=== PATIENT | male | born 1995 | race African-American/Black ===

== ENCOUNTER 2016-04-28 16:40 | Emergency (ER) | payer BC ==
[2016-04-28 17:20] VITALS: BP 143/77; PULSE 67; RESP 16
[2016-04-28] MEDS ORDERED: KETOROLAC 60 MG/2 ML VIAL IM STA (18:21)
--- NOTE | 2016-04-28 18:25 | ED ---
General Adult HPI - General Chief complaint: Chest Pain Stated complaint: Side Pain Time Seen by Provider: 04/28/16 18:15 Source: patient, RN notes reviewed Mode of arrival: ambulatory Limitations: no limitations - History of Present Illness Initial comments: this is a 20-year-old male who presents with muscle pain to the right side ribs. Patient states he was bench pressing and noticed pain to the right side ribs. Patient states this has been going on for about a week and a half. Patient states it hurts worse if he twists to the left, or bends down to pick something up with his right arm. Patient states he has worked out once since this pain first started and the pain worsened. Patient has been taking Motrin for the pain with no improvement in symptoms. Patient denies any pain in the pectoralis muscles or biceps. Patient denies any Trouble breathing. Patient denies any fall or direct trauma to the area. Patient denies any recent fever, chills, shortness breath, chest pain, abdominal pain, nausea/vomiting/diarrhea, back pain, numbness, tingling, hematuria, headache, or visual changes, or any other complaints. - Related Data Previous Rx's Medication Instructions Recorded Cyclobenzaprine [Flexeril] 5 mg PO TID 3 Days 04/28/16 Allergies Allergy/AdvReac Type Severity Reaction Status Date / Time No Known Allergies Allergy Verified 04/28/16 17:18 Review of Systems ROS Statement: Those systems with pertinent positive or pertinent negative responses have been documented in the HPI. ROS Other: All systems not noted in ROS Statement are negative. Past Medical History Past Medical History: No Reported History History of Any Multi-Drug Resistant Organisms: None Reported Past Surgical History: No Surgical Hx Reported Past Psychological History: No Psychological Hx Reported Smoking Status: Never smoker Past Alcohol Use History: None Reported Past Drug Use History: None Reported General Exam - General Exam Comments Initial Comments: General: The patient is awake and alert, in no distress, and does not appear acutely ill. Neck: The neck is supple, there is no tenderness or JVD. Cardiovascular: There is a regular rate and rhythm. No murmur, rub or gallop is appreciated. Respiratory: Lungs are clear to auscultation, respirations are non-labored, breath sounds are equal. No wheezes, stridor, rales, or rhonchi. Musculoskeletal: Patient has some mild tenderness to the right side lateral aspect of the ribs inferior to the axillary area. No ecchymosis, swelling or deformities. Full range of motion, strength 5/5 and Sensation intact. Radial pulses 2+ bilaterally. Neurological: A&O x 3. CN II-XII intact, There are no obvious motor or sensory deficits. Coordination appears grossly intact. Speech is normal. Skin: Skin is warm and dry and no rashes or lesions are noted. Psychiatric: Normal mood and affect. Limitations: no limitations Course Vital Signs 04/28/16 04/28/16 17:18 18:07 Pulse Rate 67 Respiratory 16 16 Rate Blood Pressure 143/77 O2 Sat by Pulse 99 Oximetry Medical Decision Making - Medical Decision Making This is a 20-year-old male presents with right side muscle pain after working out a week and half ago. On physical exam Patient has some mild tenderness to the right side lateral aspect of the ribs inferior to the axillary area. No ecchymosis, swelling or deformities. Full range of motion, strength 5/5 and Sensation intact. Radial pulses 2+ bilaterally. Patient was given a dose of Toradol in the EC. A chest x-ray was done and reviewed showing: Normal chest. Normal right ribs. Report reviewed by Dr. Winn. I discussed that this is most likely a muscle strain. I discussed continued use of Tylenol and/or Motrin and heating pads to the area. Patient was given a prescription for Flexeril. I discussed sedation effects. Discussed that he should refrain from lifting weights until the pain has subsided. I discussed return parameters and patient should follow-up with his primary care physician in one to 2 days or return to the [facility] for any worsening symptoms or for any further concerns. Patient was receptive to this plan and patient will be discharged home. Disposition Clinical Impression: Muscle strain Disposition: HOME SELF-CARE Condition: Good Instructions: Muscle Strain (ED) Additional Instructions: Please use ibuprofen and Tylenol [id number] for pain. Please do not use Flexeril will driving or drinking alcohol as may cause increased drowsiness. May use heating pads to the area. Please refrain from lifting weights until pain is completely subsided. Please follow-up with your primary care physician in one to 2 days or return to the [facility] for any worsening symptoms or for any further concerns. Prescriptions: Cyclobenzaprine [Flexeril] 5 mg PO TID 3 Days Time of Disposition: 18:58
--- NOTE | 2016-04-28 18:42 | XR ---
EXAMINATION TYPE: XR ribs RT w pa chest xray DATE OF EXAM: 04/28/2016 6:33 PM COMPARISON: NONE HISTORY: Rib pain TECHNIQUE: 5 views FINDINGS: Heart and mediastinum are normal. Lungs are clear. There is no sign of pleural effusion or pneumothorax. The right ribs are intact. I see no rib fracture. IMPRESSION: Normal chest. Normal right ribs.
== END 2016-04-28 19:07 | disposition home or self-care (01) ==
LOC: EC 16:40
DX: S29.011A Strain of muscle and tendon of front wall of thorax, initial encounter (principal); X58.XXXA Exposure to other specified factors, initial encounter
CPT/HCPCS: 71101; 99284; 96372; J1885

== ENCOUNTER 2016-08-04 22:26 | Emergency (ER) | payer BC ==
[2016-08-04 22:39] VITALS: RESP 18; TEMP 97.6
--- NOTE | 2016-08-04 22:47 | ED ---
General Adult HPI - General Chief complaint: Chest Pain Stated complaint: chest pain/arm numbness Time Seen by Provider: 08/04/16 22:35 Source: patient, RN notes reviewed Mode of arrival: ambulatory Limitations: no limitations - History of Present Illness Initial comments: This is a 21-year-old male presents to the emergency department with left pectoralis chest pain patient states it hurts with movement or palpation. Patient states the pain started 3 months ago. Patient states he doesn't quite a bit of weight lifting but he has not lifted and 3 weeks. 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 Patient thinks it may be related to that. He denies any numbness to denies any weakness in the arm. Patient states he has no neck pain and he has full range of motion of his neck. Patient denies any recent fever or chills per patient denies any palpitations difficulty breathing shortness of breath. Patient denies any abdominal pain patient denies nausea vomiting diarrhea - Related Data Previous Rx's Medication Instructions Recorded Ibuprofen [Motrin] 600 mg PO Q6HR PRN #20 tab 08/04/16 Allergies Allergy/AdvReac Type Severity Reaction Status Date / Time No Known Allergies Allergy Verified 08/04/16 22:56 Review of Systems ROS Statement: Those systems with pertinent positive or pertinent negative responses have been documented in the HPI. ROS Other: All systems not noted in ROS Statement are negative. Past Medical History Past Medical History: No Reported History History of Any Multi-Drug Resistant Organisms: None Reported Past Surgical History: No Surgical Hx Reported Past Psychological History: No Psychological Hx Reported Smoking Status: Never smoker Past Alcohol Use History: Occasional Past Drug Use History: Marijuana General Exam - General Exam Comments Initial Comments: GENERAL: Patient is well-developed and well-nourished. Patient is nontoxic and well- hydrated and is in mild distress. ENT: Neck is soft and supple. No significant lymphadenopathy is noted. Oropharynx is clear. Moist mucous membranes. Neck has full range of motion without eliciting any pain. EYES: The sclera were anicteric and conjunctiva were pink and moist. Extraocular movements were intact and pupils were equal round and reactive to light. Eyelids were unremarkable. PULMONARY: Unlabored respirations. Good breath sounds bilaterally. No audible rales rhonchi or wheezing was noted. CARDIOVASCULAR: There is a regular rate and rhythm without any murmurs gallops or rubs. Chest pain is reproducible on palpation it is very specific spot on the outer left pectoralis muscle ABDOMEN: Soft and nontender with normal bowel sounds. No palpable organomegaly was noted. There is no palpable pulsatile mass. SKIN: Skin is clear with no lesions or rashes and otherwise unremarkable. NEUROLOGIC: Patient is alert and oriented x3. Cranial nerves II through XII are grossly intact. Motor and sensory are also intact. Normal speech, volume and content. Symmetrical smile. MUSCULOSKELETAL: Normal extremities with adequate strength and full range of motion. No lower extremity swelling or edema. No calf tenderness. LYMPHATICS: No significant lymphadenopathy is noted PSYCHIATRIC: Normal psychiatric evaluation. Normal interpersonal interactions appears functionally intact in deals appropriately with others. No signs of depression. No signs of anxiety. Limitations: no limitations Course Vital Signs 08/04/16 22:37 Temperature 97.6 F Pulse Rate 81 Respiratory 18 Rate Blood Pressure 143/85 O2 Sat by Pulse 97 Oximetry Medical Decision Making - Medical Decision Making EKG shows normal sinus rhythm at 80 bpm SC interval 148 QRSs 102 QT interval 360 QTC is 4:15. Patient's EKG shows no ST segment elevation or depression or T wave abnormalities are noted. Chest x-ray shows no acute abnormality. Patient's pain was completely reproducible with movement or palpation. Disposition Clinical Impression: Chest wall muscle strain, Paresthesia Disposition: HOME SELF-CARE Condition: Good Instructions: Muscle Strain (ED), Paresthesia (ED) Prescriptions: Ibuprofen [Motrin] 600 mg PO Q6HR PRN #20 tab PRN Reason: For pain Referrals: Osmani Almanzar MD [Primary Care Provider] - 1-2 days Time of Disposition: 23:06
--- NOTE | 2016-08-04 23:09 | XR ---
EXAM: XR Chest, 2 Views CLINICAL HISTORY: Difficulty breathing. TECHNIQUE: Frontal and lateral views of the chest. COMPARISON: Radiographs dated 04/28/2016. FINDINGS: Lungs: No focal consolidation. No evidence of pulmonary edema. Pleural space: No pleural effusion. No pneumothorax. Heart: Unremarkable. No cardiomegaly. Mediastinum: Unremarkable. Bones/joints: Unremarkable. IMPRESSION: No radiographic evidence of acute cardiopulmonary process.
[2016-08-04 23:20] VITALS: BP 129/85; PULSE 74
== END 2016-08-04 23:15 | disposition home or self-care (01) ==
LOC: EC 22:26
DX: S29.011A Strain of muscle and tendon of front wall of thorax, initial encounter (principal); R07.89 Other chest pain; X58.XXXA Exposure to other specified factors, initial encounter
CPT/HCPCS: 71020; 93005; 99285

== ENCOUNTER 2016-09-11 22:13 | Emergency (ER) | payer BC ==
[2016-09-11 22:38] VITALS: RESP 16
[2016-09-11 23:19] VITALS: BP 144/65; PULSE 72; TEMP 98
--- NOTE | 2016-09-11 23:40 | ED ---
Head Injury HPI - General Chief complaint: Head Injury Stated complaint: Head Injury/Football Time Seen by Provider: 09/11/16 23:18 Source: patient Mode of arrival: ambulatory Limitations: no limitations - History of Present Illness Initial comments: Patient is a 21-year-old male presenting to the emergency department with complaints of head injury and loss of consciousness for 30 seconds. Patient states he was playing in a football and was involved in a helmet to helmet contact and lost consciousness for 30 seconds. 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 Patient currently denies headache, visual changes, nausea, vomiting, tinnitus, dysphagia, nausea, vomiting, nosebleed, facial pain, neck pain, shortness of breath, chest pain, abdominal pain, numbness or tingling. Patient denies recent illness. MD Complaint: head injury Time: 21:30 Mechanism of Injury: sports related injury (Helmet to helmet contact) Location: frontal Loss of Consciousness: yes (30 seconds, witnessed) Previous Trauma to this Area: No Place: outdoors Radiation: none Severity scale (1-10): 0 Other Injuries: none Associated Symptoms: denies other symptoms - Related Data Home Medications Medication Instructions Recorded Confirmed Ibuprofen [Motrin] 200 - 400 mg PO Q6HR PRN 09/11/16 09/11/16 Menthol [Biofreeze] 1 applic TOPICAL DAILY PRN 09/11/16 09/11/16 Allergies/Adverse reactions: Allergies Allergy/AdvReac Type Severity Reaction Status Date / Time No Known Allergies Allergy Verified 09/11/16 22:41 Review of Systems ROS Statement: Those systems with pertinent positive or pertinent negative responses have been documented in the HPI. ROS Other: All systems not noted in ROS Statement are negative. Past Medical History Past Medical History: No Reported History History of Any Multi-Drug Resistant Organisms: None Reported Past Surgical History: No Surgical Hx Reported Past Psychological History: No Psychological Hx Reported Smoking Status: Never smoker Past Alcohol Use History: Occasional Past Drug Use History: Marijuana General Exam Limitations: no limitations General appearance: alert, in no apparent distress Head exam: Present: atraumatic, normocephalic, normal inspection Eye exam: Present: normal appearance, PERRL, EOMI. Absent: scleral icterus, conjunctival injection, nystagmus, periorbital swelling, periorbital tenderness Pupils: Present: normal accommodation Expanded Eyelids: Normal Inspection: Left Pupils: Regular, Round: Left, Reactive: Left ENT exam: Present: normal exam, normal oropharynx, mucous membranes moist, TM's normal bilaterally, normal external ear exam Expanded Ear exam: Present: normal external inspection Mouth exam: Present: normal external inspection, tongue normal. Absent: drooling, trismus, laceration Teeth exam: Present: normal inspection Throat exam: normal inspection Neck exam: Present: normal inspection, full ROM. Absent: tenderness, lymphadenopathy Expanded Neck exam: Absent: midline deformity, anterior neck swelling, tracheal deviation Respiratory exam: Present: normal lung sounds bilaterally. Absent: respiratory distress, wheezes, rales, rhonchi, stridor Cardiovascular Exam: Present: regular rate, normal rhythm, normal heart sounds. Absent: systolic murmur GI/Abdominal exam: Present: soft, normal bowel sounds. Absent: distended, tenderness Extremities exam: Present: normal inspection, full ROM. Absent: tenderness, normal capillary refill, joint swelling, calf tenderness Back exam: Present: normal inspection, full ROM. Absent: tenderness, CVA tenderness (R), CVA tenderness (L), paraspinal tenderness, vertebral tenderness , rash noted Neurological exam: Present: alert, oriented X3 Expanded Neurological exam: Present: memory loss-recent event. Absent: inattentive, ataxia Patient oriented to: Present: person, place, time Speech: Present: fluid speech Cranial nerves: EOM's Intact: Normal, Gag Reflex: Normal, Facial Sensation: Normal Cerebellar function: Finger to Nose: Normal, Heel to Justin: Normal, Romberg: Normal Motor strength exam: RUE: 5, LUE: 5, RLE: 5, LLE: 5 Eye Response: (4) open spontaneously Motor Response: (6) obeys commands Verbal Response: (5) oriented Psychiatric exam: Present: normal affect, normal mood Skin exam: Present: warm, dry, intact, normal color Course Vital Signs 09/11/16 09/11/16 22:32 23:17 Temperature 98.1 F 98.0 F Pulse Rate 59 L 72 Respiratory 16 16 Rate Blood Pressure 131/61 144/65 O2 Sat by Pulse 99 98 Oximetry Medical Decision Making - Medical Decision Making Concussion with loss of consciousness. Neurological exam intact. Patient at this time declines CAT scan of brain and states he will follow-up with primary care physician. Patient instructed to return to the emergency department with new or worsening neurological deficits. Discharge instructions and return parameters reviewed. Disposition Clinical Impression: Concussion with loss of consciousness Disposition: HOME SELF-CARE Condition: Good Instructions: Concussion (ED) Additional Instructions: Please return to the emergency department with increased headache, visual problems, nausea, vomiting, ringing in ears, any weakness, or any other neurological symptoms. Follow-up with primary care physician for clearance to return to play. Referrals: Osmani Almanzar MD [Primary Care Provider] - 1-2 days Time of Disposition: 23:39
== END 2016-09-11 23:46 | disposition home or self-care (01) ==
LOC: EC 22:13
DX: S06.0X1A Concussion with loss of consciousness of 30 minutes or less, initial encounter (principal); W51.XXXA Accidental striking against or bumped into by another person, initial encounter; Y92.89 Other specified places as the place of occurrence of the external cause; Y93.61 Activity, american tackle football
CPT/HCPCS: 99283

== ENCOUNTER 2017-07-02 11:46 | Emergency (ER) | payer BC ==
[2017-07-02 11:59] VITALS: BP 128/58; PULSE 57; RESP 20; TEMP 98.1
--- NOTE | 2017-07-02 12:38 | ED ---
General Adult HPI - General Chief complaint: Extremity Injury, Upper Stated complaint: thumb injury Time Seen by Provider: 07/02/17 12:04 Source: patient, RN notes reviewed Mode of arrival: ambulatory Limitations: no limitations - History of Present Illness Initial comments: 22 year old male presents to the emergency department for a chief complaint of right thumb pain 1 hour. Patient states that he slammed his thumb and his girlfriend's car trunk. He states that it was stuck for about 2-3 minutes before he was able to contact his girlfriend and have her open the trunk. Patient denies pain anywhere else in the hand or other fingers. Patient is right-handed. Patient states he is able to move his thumb but it is somewhat painful. Patient has not had anything for pain. Patient states he has full sensation in his right thumb. Patient denies any other complaints at this time including headache, chest pain, shortness of breath, abdominal pain, nausea or vomiting. - Related Data Home Medications Medication Instructions Recorded Confirmed Ibuprofen [Motrin] 200 - 400 mg PO Q6HR PRN 09/11/16 09/11/16 Menthol [Biofreeze] 1 applic TOPICAL DAILY PRN 09/11/16 09/11/16 Allergies Allergy/AdvReac Type Severity Reaction Status Date / Time No Known Allergies Allergy Verified 07/02/17 11:59 Review of Systems ROS Statement: Those systems with pertinent positive or pertinent negative responses have been documented in the HPI. ROS Other: All systems not noted in ROS Statement are negative. Past Medical History Past Medical History: No Reported History History of Any Multi-Drug Resistant Organisms: None Reported Past Surgical History: No Surgical Hx Reported Past Psychological History: No Psychological Hx Reported Smoking Status: Never smoker Past Alcohol Use History: Occasional Past Drug Use History: Marijuana General Exam Limitations: no limitations General appearance: alert, in no apparent distress Respiratory exam: Present: normal lung sounds bilaterally. Absent: respiratory distress, wheezes, rales, rhonchi, stridor Cardiovascular Exam: Present: regular rate, normal rhythm, normal heart sounds. Absent: systolic murmur, diastolic murmur, rubs, gallop, clicks Extremities exam: Present: tenderness (Patient has tenderness of the distal phalanx of the right thumb. No tenderness in the rest of the fingers or right hand, specifically the scaphoid area.), normal capillary refill (Refill less than 2 seconds in the right thumb), other (Radial pulse 2+ in the right hand.). Absent: full ROM (Patient has slightly limited range of motion of the right thumb), joint swelling (No swelling noted in the right thumb. No subungual hematoma.) Course Vital Signs 07/02/17 11:57 Temperature 98.1 F Pulse Rate 57 L Respiratory 20 Rate Blood Pressure 128/58 O2 Sat by Pulse 98 Oximetry Medical Decision Making - Medical Decision Making 22-year-old male presents to the emergency department for chief complaint of right thumb pain 2 hours after slamming his thumb in the trunk of his girlfriend 's car. Patient states his thumb was stuck for 2-3 minutes until his girlfriend cut open the trunk. Patient is able to move the right thumb but range of motion is slightly limited. Neurovascular intact. There is no swelling noted. No ecchymosis. No subungual hematoma. There is tenderness to the distal phalanx of the right thumb but no tenderness to the rest of the hand or scaphoid area. X-ray of the right thumb was obtained. X-ray of the first digit of the right hand shows no fracture or dislocation. Joint spaces and alignment are maintained. Patient likely has a contusion of the right thumb. He was educated on rice therapy and Motrin for pain relief. He was educated to follow-up with primary care in 1-2 days. He was also told he may need repeat x- rays in 7-10 days if symptoms do not resolve. If he develops a subungual hematoma or worsening symptoms he was told to follow up with primary care or return to the emergency department. Motrin or Tylenol for pain relief. Disposition Clinical Impression: Thumb pain Disposition: HOME SELF-CARE Condition: Good Instructions: Finger Sprain (ED), RICE Therapy (ED) Additional Instructions: Please take Motrin or Tylenol for pain relief. Please follow-up with primary care in 1-2 days. If you have worsening symptoms or continued symptoms return to the emergency department. You may need repeat x-rays in 7-10 days if symptoms do not resolve. Is patient prescribed a controlled substance at discharge?: No Referrals: Osmani Almanzar MD [Primary Care Provider] - 1-2 days Time of Disposition: 13:03
--- NOTE | 2017-07-02 12:43 | XR ---
First digit right hand HISTORY: Trauma and pain 3 views of the first digit right hand Bone mineralization, joint spaces and alignment are maintained. Suspect soft tissue swelling is prese nt. IMPRESSION: No fracture or dislocation, follow-up as indicated.
== END 2017-07-02 13:08 | disposition home or self-care (01) ==
LOC: EC 11:46
DX: M79.644 Pain in right finger(s) (principal); W22.8XXA Striking against or struck by other objects, initial encounter; Y92.89 Other specified places as the place of occurrence of the external cause
CPT/HCPCS: 99283

== ENCOUNTER 2017-12-19 16:48 | Emergency (ER) | payer BC ==
[2017-12-19 17:10] VITALS: BP 128/72; PULSE 88; RESP 16; TEMP 97
--- NOTE | 2017-12-19 17:22 | ED ---
General Adult HPI - General Chief complaint: Extremity Injury, Lower Stated complaint: Ankle injury Time Seen by Provider: 12/19/17 17:00 Source: patient, RN notes reviewed Mode of arrival: wheelchair Limitations: no limitations - History of Present Illness Initial comments: Patient 22-year-old male presented to the emergency room today with a chief complaint of injury to the left ankle that occurred just prior to arrival. He does admit that he was playing basketball. He states that he came down the left ankle. He states is worried that he may appropriate. Patient denies any other injury or complaint. Patient denies any recent fever, chills, shortness of breath, chest pain, back pain, abdominal pain, nausea or vomiting, numbness or tingling, headaches or visual changes, or any other complaints. - Related Data Home Medications Medication Instructions Recorded Confirmed Ibuprofen [Motrin] 200 - 400 mg PO Q6HR PRN 09/11/16 09/11/16 Menthol [Biofreeze] 1 applic TOPICAL DAILY PRN 09/11/16 09/11/16 Previous Rx's Medication Instructions Recorded Ibuprofen [Motrin] 600 mg PO Q6HR PRN #40 day 12/19/17 Allergies Allergy/AdvReac Type Severity Reaction Status Date / Time No Known Allergies Allergy Verified 07/02/17 11:59 Review of Systems ROS Statement: Those systems with pertinent positive or pertinent negative responses have been documented in the HPI. ROS Other: All systems not noted in ROS Statement are negative. Past Medical History Past Medical History: No Reported History History of Any Multi-Drug Resistant Organisms: None Reported Past Surgical History: No Surgical Hx Reported Past Psychological History: No Psychological Hx Reported Smoking Status: Never smoker Past Alcohol Use History: Occasional Past Drug Use History: Marijuana General Exam - General Exam Comments Initial Comments: General: The patient is awake and alert, in no distress, and does not appear acutely ill. Neck: The neck is supple, there is no tenderness or JVD. Musculoskeletal: Moderate swelling to the lateral aspect of the left ankle. There is no tenderness to the left knee or proximal fibula. Patient does have mild tenderness over the lateral malleolus. Increased tenderness in the ATFL. Pupils 2+. Patient shows limited range of motion due to pain. Neurological: A&O x 3. CN II-XII intact, There are no obvious motor or sensory deficits. Coordination appears grossly intact. Speech is normal. Skin: Skin is warm and dry and no rashes or lesions are noted. Psychiatric: Normal mood and affect. Limitations: no limitations Course Vital Signs 12/19/17 17:09 Temperature 97.0 F L Pulse Rate 88 Respiratory 16 Rate Blood Pressure 128/72 O2 Sat by Pulse 97 Oximetry Medical Decision Making - Medical Decision Making Patient's x-ray reviewed is negative for any acute fracture dislocation. Results were discussed with the patient. Patient will be given Aircast splint here the emergency room is advised follow-up in 7 days if symptoms persist for repeat x-rays. He is advised elevate the affected area and use ibuprofen for pain. Disposition Clinical Impression: Ankle sprain Disposition: HOME SELF-CARE Condition: Good Instructions: Ankle Sprain (ED) Additional Instructions: Please continue to ice elevate the affected area at least 4 times a day for 20 minutes at a time. Please use Tylenol/ibuprofen for pain. Please follow-up in 7-10 days for repeat x-rays if symptoms persist. Please return to emergency room for any other concerns. Prescriptions: Ibuprofen [Motrin] 600 mg PO Q6HR PRN #40 day PRN Reason: Pain Is patient prescribed a controlled substance at d/c from ED?: No Referrals: Brittny Uriarte MD [STAFF PHYSICIAN] - 1-2 days Time of Disposition: 18:46
--- NOTE | 2017-12-19 18:42 | XR ---
EXAMINATION TYPE: XR ankle complete LT DATE OF EXAM: 12/19/2017 CLINICAL HISTORY: Left ankle pain after injury TECHNIQUE: Frontal, lateral and oblique images of the left ankle are obtained. COMPARISON: None. FINDINGS: There is no acute fracture/dislocation evident in the left ankle. The ankle mortise appea rs within normal limits. The overlying soft tissue appears unremarkable. IMPRESSION: There is no acute fracture or dislocation in the left ankle.
== END 2017-12-19 18:55 | disposition home or self-care (01) ==
LOC: EC 16:48
DX: S93.402A Sprain of unspecified ligament of left ankle, initial encounter (principal); X50.1XXA Overexertion from prolonged static or awkward postures, initial encounter; Y93.67 Activity, basketball
CPT/HCPCS: 99283